=== PATIENT | male | born 1950 | race Caucasian/White ===

== ENCOUNTER → 2017-04-17 | Outpatient (REF) | payer OTHER, MEDICARE | LOC: M LAB REF 16:49 | PROVIDERS: ATTEND Physician Assistant | DX: J02.9 Acute pharyngitis, unspecified (principal) ==

== ENCOUNTER → 2019-06-22 | Outpatient (CLI) | payer BC, OTHER, MEDICARE ==
--- NOTE | 2019-06-22 09:35 | REP ---
Clinical: Left lower extremity pain. Technique: Neutral and frog lateral views of the left hip. Findings: Left hip demonstrates relatively normal age appropriate changes with subtle increase sclerosis to the acetabular roof and minimal joint space narrowing. No osteophytosis, subchondral cystic changes or significant loose bodies are identified. Vascular calcifications noted. Impression: Generalized age-related changes to the left hip. Electronically Signed by Jamie Velazquez MD 06/22/2019 09:26 A
--- NOTE | 2019-06-22 09:36 | REP ---
Clinical: Left lower extremity pain. Technique: Neutral and frog lateral views of the left femur. Findings: Osseous structures, joint spaces, and surrounding soft tissues appear relatively normal for age. Peripheral vascular disease noted. Impression: Age-appropriate left femur radiographs. Electronically Signed by Jamie Velazquez MD 06/22/2019 09:27 A
== END ==
LOC: M WUC 08:59
PROVIDERS: ATTEND Family Medicine
DX: M79.605 Pain in left leg (principal)

== ENCOUNTER → 2019-06-22 | Outpatient (CLI) | payer BC, OTHER, MEDICARE ==
[2019-06-22 13:51] LABS: HEMOGLOBIN 14.5 g/dl (13.5-17.5); MEAN CORPUSCULAR HEMOGLOBIN 29.8 pg (27.0-33.0); MEAN CORPUSCULAR VOLUME 90.5 fl (80.0-96.0); PLATELET COUNT, AUTOMATED 192 10^3/uL (150-450); RED BLOOD COUNT 4.86 10^6/uL (4.30-6.10); WHITE BLOOD COUNT 9.4 10^3/uL (4.0-10.0)
[2019-06-22 14:05] LABS: BLOOD UREA NITROGEN 15 MG/DL (7-18); CALCIUM LEVEL 9.2 MG/DL (8.8-10.2); CARBON DIOXIDE LEVEL 29 MEQ/L (21-32); CHLORIDE LEVEL 104 MEQ/L (98-107); CHOLESTEROL LEVEL 122 MG/DL (<200); CHOLESTEROL RISK RATIO 2.975 (<5); CREATININE FOR GFR 1.24 MG/DL (0.70-1.30); GLOMERULAR FILTRATION RATE > 60.0 (>49); GLUCOSE, FASTING 156 MG/DL (70-100); HDL CHOLESTEROL 41 MG/DL (>40); LDL CHOLESTEROL 27 MG/DL (<100); NON-HDL-C 81 MG/DL; POTASSIUM SERUM 4.1 MEQ/L (3.5-5.1); SODIUM LEVEL 140 MEQ/L (136-145); TRIGLYCERIDES LEVEL 269 MG/DL (<150)
== END ==
LOC: M WUC 09:02
PROVIDERS: ATTEND Physician Assistant
DX: I25.10 Atherosclerotic heart disease of native coronary artery without angina pectoris (principal); I10 Essential (primary) hypertension

== ENCOUNTER → 2020-02-12 | Outpatient (CLI) | payer OTHER, BC, MEDICARE ==
[2020-02-12 13:39] LABS: HEMATOCRIT 41.1 % (42.0-52.0); HEMOGLOBIN 13.6 g/dl (13.5-17.5); MEAN CORPUSCULAR HEMOGLOBIN 29.6 pg (27.0-33.0); MEAN CORPUSCULAR HGB CONC 33.1 g/dl (32.0-36.5); MEAN CORPUSCULAR VOLUME 89.5 fl (80.0-96.0); PLATELET COUNT, AUTOMATED 182 10^3/uL (150-450); RED BLOOD COUNT 4.59 10^6/uL (4.30-6.10); WHITE BLOOD COUNT 9.3 10^3/uL (4.0-10.0)
[2020-02-12 13:44] LABS: ALBUMIN 3.5 GM/DL (3.2-5.2); BILIRUBIN,TOTAL 0.3 MG/DL (0.2-1.0); CALCIUM LEVEL 8.7 MG/DL (8.8-10.2); CHOLESTEROL RISK RATIO 3.352 (<5); CREATININE FOR GFR 1.73 MG/DL (0.70-1.30); GLOMERULAR FILTRATION RATE 41.8 (>42); POTASSIUM SERUM 5.5 MEQ/L (3.5-5.1); TOTAL PROTEIN 6.9 GM/DL (6.4-8.2)
[2020-02-12 13:59] LABS: HEMOGLOBIN A1c 8.1 %
== END ==
LOC: M WUC 10:07
PROVIDERS: ATTEND Family Medicine
DX: E11.9 Type 2 diabetes mellitus without complications (principal)

== ENCOUNTER → 2020-02-13 | Outpatient (REF) | payer OTHER, BC, MEDICARE ==
[2020-02-13 18:52] LABS: MAU/CREAT RATIO 89.7 MCG/MG (0.0-30.0)
== END ==
LOC: M LAB REF 18:07
PROVIDERS: ATTEND Family Medicine
DX: E11.9 Type 2 diabetes mellitus without complications (principal)

== ENCOUNTER 2020-09-08 20:12 | Emergency (ER) | payer MEDICARE, BC, OTHER ==
[~2020-09-08] VITALS: Ht 170.2 cm; Wt 90.9 kg
[2020-09-08] MEDS ORDERED: ZOLP10TA2 PO (20:20)
[2020-09-08] MEDS ORDERED: OMEG1CAP4 PO (20:20)
[2020-09-08] MEDS ORDERED: LISI-538 PO (20:20)
[2020-09-08] MEDS ORDERED: ROSU40TA4 PO (20:20)
[2020-09-08] MEDS ORDERED: BUPR300T92 PO (20:20)
[2020-09-08] MEDS ORDERED: AMLO1TAB24 PO (20:20)
[2020-09-08] MEDS ORDERED: ZYLO300T6 PO (20:20)
--- NOTE | 2020-09-08 21:23 | REPVR ---
PROCEDURE INFORMATION: Exam: XR Left Foot Complete Exam date and time: 09/08/2020 8:46 PM Age: 69 years old Clinical indication: Injury TECHNIQUE: Imaging protocol: XR Left foot. Views: 3 or more views. COMPARISON: No relevant prior studies available. FINDINGS: Bones/joints: There is no fracture or dislocation of the left foot. The Lisfranc alignment is within normal limits. There is a plantar calcaneal spur at the origin of the plantar fascia. Incidental note is made of a bipartite medial hallux sesamoid bone. Soft tissues: Unremarkable. Vasculature: There are atherosclerotic calcifications. IMPRESSION: No fracture or dislocation of the left foot. Electronically signed by: Josh Hernadez On 09/08/2020 21:22:51 PM
[2020-09-09] MEDS ORDERED: BOOSTRIX/ADACEL VACCINE (DIPHTH/PERTUSS/ACELL/TETANUS) 0.5ML SYR IM ONE
[2020-09-09 00:12] VITALS: BP 162/80
== END 2020-09-09 00:20 | disposition home or self-care (01) ==
LOC: M ED 20:12
DX: S93.502A Unspecified sprain of left great toe, initial encounter (principal); S90.122A Contusion of left lesser toe(s) without damage to nail, initial encounter; S80.812A Abrasion, left lower leg, initial encounter; W22.8XXA Striking against or struck by other objects, initial encounter; Y92.099 Unspecified place in other non-institutional residence as the place of occurrence of the external cause; Y93.9 Activity, unspecified; Y99.9 Unspecified external cause status; I25.2 Old myocardial infarction; I10 Essential (primary) hypertension; Z86.73 Personal history of transient ischemic attack (TIA), and cerebral infarction without residual deficits; M10.9 Gout, unspecified; F32.9 Major depressive disorder, single episode, unspecified; Z87.891 Personal history of nicotine dependence; Z79.899 Other long term (current) drug therapy

== ENCOUNTER → 2021-04-30 | Outpatient (CLI) | payer MEDICARE, BC, OTHER ==
[~2021-04-30] MED LIST: AMLO1TAB24 PO; BUPR300T92 PO; LISI20TA33 PO; OMEG1CAP85 PO; ROSU40TA4 PO; ZOLP10TA2 PO; ZYLO300T6 PO
[2021-04-30 11:06] LABS: ALBUMIN 3.6 GM/DL (3.2-5.2); BILIRUBIN,TOTAL 0.3 MG/DL (0.2-1.0); CALCIUM LEVEL 9.3 MG/DL (8.8-10.2); CREATININE FOR GFR 1.56 MG/DL (0.70-1.30); GLOMERULAR FILTRATION RATE 46.9 (>42); POTASSIUM SERUM 4.9 MEQ/L (3.5-5.1); TOTAL PROTEIN 6.7 GM/DL (6.4-8.2)
== END ==
LOC: M WUC 08:03
PROVIDERS: ATTEND Physician Assistant
DX: E78.2 Mixed hyperlipidemia (principal)